=== PATIENT | female | born 1955 | race Caucasian/White ===

== ENCOUNTER → 2017-12-03 19:53 | Outpatient (CLI) | payer BC ==
[2015-04-27 06:58] VITALS: BMI 20.8
[~2017-12-03 19:53] MED LIST: ALENDRONATE SOD10 MG; ARMOUR THYROID60 M1 PO; BORON; CALCIUM 500 + D1 TAB PO; GLUCOSAMINE & C1 CAP PO; MOBIC7.5 MG PO; OMEGA-3100 MG PO; TUMERIC; VITAMIN A10000 UNIT PO; VITAMIN C500 MG PO; VITAMIN E600 UNIT PO
== END | disposition home or self-care (01) ==
LOC: D.MAMMO 11-29 13:45
DX: Z12.31 Encounter for screening mammogram for malignant neoplasm of breast (principal)

== ENCOUNTER 2018-05-01 13:25 | Emergency (ER) | payer BC ==
[~2018-05-01] VITALS: Ht 154.9 cm; Wt 50.0 kg
[2018-05-01 13:27] VITALS: Ht 154.9 cm; Wt 50.0 kg
[2018-05-01 15:33] VITALS: BP 143/69
== END 2018-05-01 15:33 | disposition home or self-care (01) ==
LOC: D.ER 13:25
DX: M51.36 Other intervertebral disc degeneration, lumbar region (principal)

== ENCOUNTER 2019-01-01 14:00 | Outpatient (CLI) | payer BC ==
[2018-05-01 13:27] VITALS: BMI 20.8
== END 2019-01-01 14:30 | disposition home or self-care (01) ==
LOC: D.MAMMO 14:00
PROVIDERS: ATTEND Family Medicine
DX: Z12.31 Encounter for screening mammogram for malignant neoplasm of breast (principal)

== ENCOUNTER 2020-02-23 19:00 | Outpatient (CLI) | payer BC ==
[2018-05-01 13:27] VITALS: BMI 20.8
== END 2020-02-23 23:59 | disposition home or self-care (01) ==
LOC: D.MAMMO 19:00
PROVIDERS: ATTEND Obstetrics & Gynecology
DX: Z12.31 Encounter for screening mammogram for malignant neoplasm of breast (principal)

== ENCOUNTER → 2020-10-26 13:12 | Outpatient (CLI) | payer MEDICARE, BC ==
[2018-05-01 13:27] VITALS: BMI 20.8
== END | disposition home or self-care (01) ==
LOC: D.LAB 13:12
PROVIDERS: ATTEND Internal Medicine Pulmonary Disease
DX: J45.909 Unspecified asthma, uncomplicated (principal); Z11.52 Encounter for screening for COVID-19

== ENCOUNTER → 2020-10-31 09:58 | Outpatient (CLI) | payer MEDICARE, BC ==
[2018-05-01 13:27] VITALS: BMI 20.8
== END | disposition home or self-care (01) ==
LOC: D.RAD 08-10 14:00 → D.RT 08-10 14:30 → D.LAB 08-10 14:45 → D.RAD 08-22 08:00 → D.RT 08-22 08:00 → D.RAD 08-22 08:30 → D.LAB 08-22 08:45
PROVIDERS: ATTEND Internal Medicine Pulmonary Disease
DX: J43.9 Emphysema, unspecified (principal); J45.909 Unspecified asthma, uncomplicated; Z11.52 Encounter for screening for COVID-19